=== PATIENT | male | born 1960 | race Caucasian/White ===

== ENCOUNTER 2020-10-13 11:09 | Emergency (ER) | payer BC ==
[~2020-10-13] VITALS: Ht 182.9 cm; Wt 131.5 kg
--- NOTE | 2020-10-13 11:28 | NUR ---
ARRIVAL PT ARRIVED TO ED WITH C/O FACIAL SWELLING AND ITCHING IN THROAT SINCE EATING COLESLAW LAST NIGHT AROUND 1700. PT REPORTS HE HAS BEEN TAKING BENDARYL 100MG AT 0530 THIS AM. PT HAS SWELLING NOTED TO BILATERAL EYES. BEDIDE MONTIORS APPLIED. VITAL SIGNS STABLE. BED IN LOW LOCKED POSITION.
[2020-10-13 11:32] VITALS: BP 167/99
[2020-10-13] MEDS ORDERED: BENADRYL ONE (11:55)
[2020-10-13] MEDS ORDERED: SOLU-MEDROL ONE (11:55)
[2020-10-13] MEDS ORDERED: PEPCID IV ONE (11:56)
[2020-10-13] MEDS ORDERED: EPINEPHrine ONE (11:56)
[2020-10-13] MEDS: BENADRYL IV STA (12:09)
[2020-10-13] MEDS: EPINEPHrine SQ STA (12:10)
[2020-10-13] MEDS: PEPCID IV STA (12:10)
[2020-10-13] MEDS: SOLU-MEDROL IV STA (12:10)
[2020-10-13 12:45] VITALS: BP 137/76
--- NOTE | 2020-10-13 12:48 | ER.PDOC ---
General Chief Complaint: Allergic Reaction Stated Complaint: ALLERGIC REACTION Time seen by MD: 12:02 Source: patient Exam Limitations: no limitations History of Present Illness Initial Comments Allergic reaction since yesterday. Patient ate coleslaw which resulted in facial swelling and throat discomfort. Severity: moderate Associated Symptoms: facial swelling, throat swollen Identified Cause: yes Allergies: Coded Allergies: No Known Allergies (Unverified , 10/13/20) Vital Signs First Vital Signs Date Time Temp Pulse Resp B/P (MAP) Pulse Ox O2 Delivery O2 Flow Rate FiO2 10/13/20 11:32 98.2 68 20 167/99 (121) 94 Room Air Last Vital Signs Date Time Temp Pulse Resp B/P (MAP) Pulse Ox O2 Delivery O2 Flow Rate FiO2 10/13/20 11:32 98.2 68 20 94 10/13/20 11:32 167/99 (121) Room Air Past Medical History Medical History: hypertension Surgical History: hip, knee Family History Significant Family History: no pertinent family hx Social History Alcohol Use: none Drug Use: none Constitutional: no symptoms reported EENTM: see HPI Respiratory: no symptoms reported Cardiovascular: no symptoms reported Gastrointestinal: no symptoms reported Skin: see HPI All Other Systems: Reviewed and Negative Physical Exam General Appearance: alert, no distress HEENT: angioedema Skin: no rash, nml color, warm/dry Extremities: non-tender, nml ROM, no edema Neck: nml inspection Respiratory: no resp. distress, breath sounds nml CVS: reg. rate & rhythm, heart sounds nml Abdomen: non-tender, no organomegaly NEURO/PSYCH: oriented x 3, CN's nml as tested, motor nml, sensation nml, mood/affect nml Results/Orders Results/Orders Orders - BUZZ ARNOLD MD Diphenhydramine Hcl (Benadryl) (10/13/20 11:55) Methylprednisolone Sod Succ (Solu-Medrol (10/13/20 11:55) Famotidine/Pf (Pepcid) (10/13/20 11:56) Epinephrine (Epinephrine) (10/13/20 11:56) Epinephrine (Epinephrine) (10/13/20 11:58) Methylprednisolone Sod Succ (Solu-Medrol (10/13/20 11:58) Famotidine/Pf (Pepcid) (10/13/20 11:58) Diphenhydramine Hcl (Benadryl) (10/13/20 11:58) Vital Signs Date Time Temp Pulse Resp B/P (MAP) Pulse Ox O2 Delivery O2 Flow Rate FiO2 10/13/20 11:32 98.2 68 20 94 10/13/20 11:32 98.2 68 20 10/13/20 11:32 98.2 68 20 167/99 (121) 94 Room Air Administered Medications Medications (Trade) Dose Ordered Sig/Sam Route PRN Reason Start Time Stop Time Status Last Admin Dose Admin Diphenhydramine HCl (Benadryl) 50 mg STAT STAT IV 10/13/20 11:58 10/13/20 12:02 DC 10/13/20 12:09 50 MG Epinephrine HCl (EPINEPHrine) 0.3 mg STAT STAT SQ 10/13/20 11:58 10/13/20 12:02 DC 10/13/20 12:10 0.3 MG Famotidine (Pepcid) 20 mg STAT STAT IV 10/13/20 11:58 10/13/20 12:02 DC 10/13/20 12:10 20 MG Methylprednisolone Sodium Succinate (Solu-Medrol) 125 mg STAT STAT IV 10/13/20 11:58 10/13/20 12:02 DC 10/13/20 12:10 125 MG Progress Progress Patient symptoms improved and is feeling better to go home. Throat discomfort c ompletely resolved. ER DEPART Departure Time of Disposition: 12:47 Disposition: 01 HOME, SELF-CARE Impression: Primary Impression: Angioedema Additional Impression: Acute allergic reaction Condition: Improved Referrals: PCP,UNKNOWN (PCP) PRIMARY CARE PROVIDER Additional Instructions: Benadryl Prednisone Pepcid EpiPen Follow-up with your PCP in 2 to 3 days Return to ED if worsening symptoms or concerns Duration or Time Spent with Pa: 20 min Problem Qualifiers Primary Impression: Angioedema Encounter type: initial encounter Qualified Codes: T78.3XXA - Angioneuroti c edema, initial encounter Additional Impression: Acute allergic reaction Encounter type: initial encounter Qualified Codes: T78.40XA - Allergy, unspecified, initial encounter BUZZ ARNOLD MD Oct 13, 2020 12:48
== END 2020-10-13 12:53 | disposition home or self-care (01) ==
LOC: ER 11:09
DX: T78.3XXA Angioneurotic edema, initial encounter (principal); I10 Essential (primary) hypertension; Z79.52 Long term (current) use of systemic steroids
CPT/HCPCS: 96372; 96374; 96375; 99284; J0171; J1200; J2930; J3490